=== PATIENT | female | born 1955 | race African-American/Black ===

== ENCOUNTER 2022-01-12 09:18 | Outpatient (CLI) | payer MEDICARE | END 2022-01-12 09:19 | disposition home or self-care (01) | LOC: BURRAD 09:18 | PROVIDERS: ATTEND Physician Assistant | DX: M62.562 Muscle wasting and atrophy, not elsewhere classified, left lower leg (principal); M79.622 Pain in left upper arm ==

== ENCOUNTER 2023-08-31 09:58 | Emergency (ER) | payer MEDICARE ==
[2023-08-31 10:39] LABS: #Basophils 0.1 thou/uL (0.0-0.2); #Eosinphils 0.1 thou/uL (0.0-0.7); #Lymphocytes 2.6 thou/uL (1.20-3.40); #Monocytes 0.7 thou/uL (0.11-0.59); #Neutrophils 6.1 thou/uL (1.40-6.50); %Eosinophils 1.3 % (0.0-10.0); %Lymphocytes 27.1 % (21.0-51.0); %Monocytes 6.8 % (0.0-10.0); %Neutrophils 63.9 % (42.0-75.0); Hemoglobin 11.9 g/dL (12.0-16.0); Mean Corpuscular Hemoglobin 29.9 pg (27.0-31.0); Mean Corpuscular Volume 90.5 fl (78.0-98.0); Mean Platelet Volume 8.7 fL (7.4-10.4); Platelet Count 277 10x3/uL (130-400); RBC Distribution Width 12.2 % (11.5-14.5); Red Blood Cell (RBC) Count 3.97 mill/uL (4.20-5.40); White Blood Cell (WBC) Count 9.6 10x3/uL (4.8-10.8)
[2023-08-31 10:47] LABS: ALT (SGPT) 13 U/L (8-55); AST (SGOT) 12 U/L (5-34); Albumin 3.8 g/dL (3.4-4.8); Alkaline Phosphatase 60 U/L (40-110); Anion Gap 15 mmol/L (10-20); BUN (Urea Nitrogen) 19 mg/dL (9.8-20.1); Bilirubin, Total 0.3 mg/dL (0.2-1.2); Calc. Creatinine Clearance 0 mL/min (70-130); Calcium 9.1 mg/dL (7.8-10.44); Carbon Dioxide 19 mmol/L (23-31); Chloride 112 mmol/L (98-107); Estimated GFR 77; Globulin 3.3 g/dL (2.4-3.5); Glucose 103 mg/dL (80-115); Potassium 4.5 mmol/L (3.5-5.1); Protein, Total 7.1 g/dL (5.8-8.1); Sodium 141 mmol/L (136-145); Troponin I 0.013 ng/mL (< 0.028)
[2023-08-31] MEDS ORDERED: Metoprolol Tartrate 25 MG TAB ONE (10:48)
[2023-08-31] MEDS ORDERED: Apixaban 5 MG TAB PO SCH (13:15)
== END 2023-08-31 13:48 | disposition home or self-care (01) ==
LOC: BURERS 09:58
DX: I48.92 Unspecified atrial flutter (principal); F17.210 Nicotine dependence, cigarettes, uncomplicated; I10 Essential (primary) hypertension; E78.5 Hyperlipidemia, unspecified; E11.9 Type 2 diabetes mellitus without complications
CPT/HCPCS: 71045; 80053; 83880; 84484; 85025; 93005

== ENCOUNTER 2025-04-18 10:24 | Outpatient (CLI) | payer MEDICARE | END 2025-04-18 10:25 | disposition home or self-care (01) | LOC: BURRAD 10:24 | PROVIDERS: ATTEND Internal Medicine Rheumatology | DX: R06.02 Shortness of breath (principal); M25.50 Pain in unspecified joint; Z72.0 Tobacco use | CPT/HCPCS: 71046 ==

== ENCOUNTER 2025-05-30 09:57 | Outpatient (CLI) | payer MEDICARE | END 2025-05-30 09:58 | disposition home or self-care (01) | LOC: BURRAD 09:57 | PROVIDERS: ATTEND Physician Assistant | DX: M79.671 Pain in right foot (principal); M25.774 Osteophyte, right foot; M19.071 Primary osteoarthritis, right ankle and foot; M77.31 Calcaneal spur, right foot; M79.89 Other specified soft tissue disorders ==